=== PATIENT | male | born 1980 | race Caucasian/White ===

== ENCOUNTER 2024-06-23 21:44 | Emergency (ER) | payer MEDICAID ==
[~2024-06-23] VITALS: Ht 167.6 cm; Wt 98.0 kg
[2024-06-23 21:55] VITALS: O2SAT 100
[2024-06-23 22:40] VITALS: BP 181/114; TEMP 98
[2024-06-23] MEDS ORDERED: DEXAMETHASONE 2MG TABLET PO ONE (23:45)
[2024-06-23 23:51] VITALS: PULSE 118; RESP 20; O2SAT 97
[2024-06-23] MEDS: ALBUTEROL (0.083%) 2.5MG/3ML NEB HHN STA (23:51)
[2024-06-23] MEDS: IPRATROPIUM BROMIDE (0.02%) 0.5MG/2.5ML NEB HHN STA (23:52)
[2024-06-23] MEDS: DEXAMETHASONE 4MG TABLET PO ONE (23:52)
[2024-06-24] MEDS ORDERED: ALBU18HF2 IH (00:58)
[2024-06-24] MEDS: IPRATROPIUM/ALBUTEROL 0.5-3(2.5)MG/3ML NEB HHN ONE (01:01)
== END 2024-06-24 01:05 | disposition home or self-care (01) ==
LOC: ER 21:44
DX: J45.901 Unspecified asthma with (acute) exacerbation (principal); I10 Essential (primary) hypertension
CPT/HCPCS: 71045; 94640; 99283; J8540; Z7610